=== PATIENT | male | born 1935 | race Caucasian/White ===

== ENCOUNTER 2019-02-06 01:49 | Emergency (ER) | payer MEDICARE ==
[2019-02-06] MEDS ORDERED: Nitroglycerin 50 MG/250 ML BOT 250 ML ONE (02:01)
[2019-02-06 02:12] LABS: ALT (SGPT) 21 U/L (8-55); AST (SGOT) 23 U/L (5-34); Albumin 4.2 g/dL (3.4-4.8); Alkaline Phosphatase 133 U/L (40-110); Anion Gap 16 mmol/L (10-20); BUN (Urea Nitrogen) 15 mg/dL (8.4-25.7); Calc. Creatinine Clearance 0 mL/min (70-130); Calcium 9.3 mg/dL (7.8-10.44); Carbon Dioxide 19 mmol/L (23-31); Chloride 108 mmol/L (98-107); Estimated GFR-MDRD 60; Globulin 3.3 g/dL (2.4-3.5); Glucose 138 mg/dL (83-110); INR-International Normal Ratio 1.1; PTT 35.5 SEC (22.9-36.1); Protein, Total 7.5 g/dL (5.8-8.1); Prothrombin Time 14.5 SEC (12.0-14.7); Sodium 138 mmol/L (136-145)
[2019-02-06] MEDS ORDERED: Magnesium 2 GM/50 ML BAG (IN WATER) ONE (02:16)
[2019-02-06] MEDS ORDERED: methylPREDNISolone Sod Succ/PF 125 MG/2 ML VIAL ONE (02:16)
[2019-02-06] MEDS ORDERED: Furosemide 40 MG/4 ML VIAL ONE (02:17)
[2019-02-06 02:18] LABS: #Basophils 0.1 thou/uL (0.0-0.2); #Eosinphils 0.3 thou/uL (0.0-0.7); #Lymphocytes 2.5 thou/uL (1.20-3.40); #Monocytes 1.1 thou/uL (0.11-0.59); #Neutrophils 8.7 thou/uL (1.40-6.50); %Basophils 0.8 % (0.0-1.0); %Eosinophils 2.5 % (0.0-10.0); %Lymphocytes 19.9 % (21.0-51.0); %Monocytes 8.3 % (0.0-10.0); %Neutrophils 68.4 % (42.0-75.0); Hemoglobin 12.6 g/dL (14.0-18.0); Mean Corpuscular HGB CONC 32.3 g/dL (32.0-36.0); Mean Corpuscular Hemoglobin 32.5 pg (27.0-31.0); Platelet Count 176 thou/uL (130-400); RBC Distribution Width 11.6 % (11.5-14.5); Red Blood Cell (RBC) Count 3.89 mill/uL (4.70-6.10); White Blood Cell (WBC) Count 12.8 thou/uL (4.8-10.8)
[2019-02-06 02:42] LABS: Base Excess-Venous -5.8 mmol/L (-2.0 to 3.0); Bicarbonate (HCO3v) 17.3 mmol/L (22.0-28.0); CO2 Tension (PvCO2) 26.6 mmHg (40.0-50.0); Calcium, Ionized 1.16 mmol/L (See Comments:); Chloride 109 mmol/L (98-107); Hemoglobin - Calc 12.3 g/dL (14.0-18.0); Sodium 136 mmol/L (138-145); T. Carbon Dioxide 18.1 mmol/L (22.0-28.0); vO2 Saturation-calc 99.8 % (60.0-85.0)
--- NOTE | 2019-02-06 07:50 | RAD ---
PORTABLE CHEST: Date: 02/06/19 An AP portable film at 0155 hours is compared with a 09/08/18 study from [facility]. The heart is mildly enlarged. There is some diffuse pulmonary edema present today. Median sternotomy sutures duke prior surgery. There are no large effusions. A rounded object is seen over the left ches t but is presumed to be external to the patient. Calcific changes are present in the aortic arch as u sual. IMPRESSION: Mild cardiomegaly and development of pulmonary edema. CHF is presumed. POS: HOME
== END 2019-02-06 03:05 | disposition short-term general hospital (02) ==
LOC: BURERS 01:49
DX: J96.00 Acute respiratory failure, unspecified whether with hypoxia or hypercapnia (principal); I11.0 Hypertensive heart disease with heart failure; I50.1 Left ventricular failure, unspecified; F17.210 Nicotine dependence, cigarettes, uncomplicated; I25.10 Atherosclerotic heart disease of native coronary artery without angina pectoris; J43.9 Emphysema, unspecified; Z79.82 Long term (current) use of aspirin; Z79.899 Other long term (current) drug therapy; Z79.51 Long term (current) use of inhaled steroids
CPT/HCPCS: 36415; 71045; 80053; 82330; 82435; 82803; 83880; 84132; 84295; 84484; 85025; 85610; 85730; 87804; 93005; J1940; J2930; J3475; J7620

== ENCOUNTER 2019-05-31 23:03 | Emergency (ER) | payer MEDICARE ==
[2019-05-31 23:41] LABS: #Basophils 0.1 thou/uL (0.0-0.2); #Eosinphils 0.4 thou/uL (0.0-0.7); #Monocytes 0.9 thou/uL (0.11-0.59); #Neutrophils 5.3 thou/uL (1.40-6.50); %Basophils 1.2 % (0.0-1.0); %Eosinophils 4.1 % (0.0-10.0); %Lymphocytes 23.2 % (21.0-51.0); %Monocytes 10.6 % (0.0-10.0); %Neutrophils 60.9 % (42.0-75.0); Hemoglobin 13.4 g/dL (14.0-18.0); Mean Corpuscular HGB CONC 35.2 g/dL (32.0-36.0); Mean Corpuscular Hemoglobin 32.7 pg (27.0-31.0); Mean Corpuscular Volume 92.9 fL (78.0-98.0); Mean Platelet Volume 7.2 fL (7.4-10.4); Platelet Count 202 thou/uL (130-400); RBC Distribution Width 11.3 % (11.5-14.5); Red Blood Cell (RBC) Count 4.09 mill/uL (4.70-6.10); White Blood Cell (WBC) Count 8.7 thou/uL (4.8-10.8)
--- NOTE | 2019-05-31 23:59 | RAD ---
XR Chest 1 View Portable HISTORY: Cough. COMPARISON: 02/06/2019 study FINDINGS: Heart size appears slightly enlarged with postop sternotomy change. The lungs are clear of infiltrates. No signs of failure. IMPRESSION: Mild cardiomegaly.
[2019-06-01 00:04] LABS: ALT (SGPT) 18 U/L (8-55); AST (SGOT) 19 U/L (5-34); Albumin 4.3 g/dL (3.4-4.8); Alkaline Phosphatase 114 U/L (40-110); Anion Gap 14 mmol/L (10-20); BUN (Urea Nitrogen) 21 mg/dL (8.4-25.7); Bilirubin, Total 0.4 mg/dL (0.2-1.2); Calc. Creatinine Clearance 0 mL/min (70-130); Calcium 9.4 mg/dL (7.8-10.44); Carbon Dioxide 22 mmol/L (23-31); Chloride 100 mmol/L (98-107); Estimated GFR-MDRD 55; Glucose 111 mg/dL (83-110); Potassium 3.8 mmol/L (3.5-5.1); Protein, Total 7.3 g/dL (5.8-8.1); Sodium 132 mmol/L (136-145)
== END 2019-06-01 00:17 | disposition home or self-care (01) ==
LOC: BURERS 23:03
DX: I10 Essential (primary) hypertension (principal); I25.10 Atherosclerotic heart disease of native coronary artery without angina pectoris; J43.9 Emphysema, unspecified; F17.210 Nicotine dependence, cigarettes, uncomplicated; Z79.82 Long term (current) use of aspirin; Z79.51 Long term (current) use of inhaled steroids; Z79.01 Long term (current) use of anticoagulants; Z79.899 Other long term (current) drug therapy
CPT/HCPCS: 71045; 80053; 83880; 84484; 85025; 93005

== ENCOUNTER 2019-07-07 13:08 | Emergency (ER) | payer MEDICARE ==
[2019-07-07] MEDS ORDERED: Metoprolol Tartrate 5 MG/5 ML VIAL ONE ×3 (13:32→13:40)
[2019-07-07 13:36] LABS: #Basophils 0.1 thou/uL (0.0-0.2); #Eosinphils 0.5 thou/uL (0.0-0.7); #Lymphocytes 2.6 thou/uL (1.20-3.40); #Monocytes 0.4 thou/uL (0.11-0.59); #Neutrophils 4.6 thou/uL (1.40-6.50); %Basophils 1.1 % (0.0-1.0); %Eosinophils 6.2 % (0.0-10.0); %Lymphocytes 31.8 % (21.0-51.0); %Monocytes 4.4 % (0.0-10.0); %Neutrophils 56.7 % (42.0-75.0); Hemoglobin 15.5 g/dL (14.0-18.0); Mean Corpuscular HGB CONC 34.7 g/dL (32.0-36.0); Mean Corpuscular Hemoglobin 32.1 pg (27.0-31.0); Mean Corpuscular Volume 92.4 fL (78.0-98.0); Mean Platelet Volume 6.8 fL (7.4-10.4); Platelet Count 265 thou/uL (130-400); RBC Distribution Width 11.1 % (11.5-14.5); Red Blood Cell (RBC) Count 4.84 mill/uL (4.70-6.10); White Blood Cell (WBC) Count 8.2 thou/uL (4.8-10.8)
[2019-07-07 13:41] LABS: PTT 31.1 SEC (22.9-36.1)
[2019-07-07 13:48] LABS: ALT (SGPT) 24 U/L (8-55); AST (SGOT) 23 U/L (5-34); Albumin 4.7 g/dL (3.4-4.8); Alkaline Phosphatase 107 U/L (40-110); Anion Gap 16 mmol/L (10-20); BUN (Urea Nitrogen) 17 mg/dL (8.4-25.7); Bilirubin, Total 0.8 mg/dL (0.2-1.2); Calc. Creatinine Clearance 0 mL/min (70-130); Calcium 10.1 mg/dL (7.8-10.44); Carbon Dioxide 24 mmol/L (23-31); Chloride 97 mmol/L (98-107); Estimated GFR-MDRD 56; Globulin 3.6 g/dL (2.4-3.5); Glucose 158 mg/dL (83-110); Potassium 3.8 mmol/L (3.5-5.1); Protein, Total 8.3 g/dL (5.8-8.1); Sodium 133 mmol/L (136-145)
[2019-07-07] MEDS ORDERED: Carvedilol 12.5 MG TAB ONE (13:57)
[2019-07-07 14:00] LABS: D-Dimer Test 0.53 *mcg/mL (0.27-0.43)
[2019-07-07 15:09] LABS: Bilirubin Negative (Negative); Blood, Urine Trace (Negative); Clarity Clear (Clear); Glucose, Urine (Dipstick) Negative (Negative); Leukocyte Negative (Negative); Nitrite Negative (Negative); Protein, Urine (Dipstick) Negative (Neg-Trace); Urobilinogen 0.2 mg/dL (Less than 2)
[2019-07-07 15:12] LABS: Bacteria/HPF None Seen HPF (None Seen); Broad Cast None Seen LPF (None Seen); Calcium Oxalate Crystals None Seen HPF (None Seen); Cellular Cast None Seen LPF (None Seen); Epithelial Cast None Seen LPF (None Seen); Fatty Cast None Seen LPF (None Seen); Mucous/LPF None Seen LPF (<2+); Other Casts None Seen LPF (None Seen); Oval Fat Bodies/HPF None Seen HPF (None Seen); RBC/HPF 0-3 HPF (0-3); Red Blood Cell Cast None Seen LPF (None Seen); Renal Epithelial None Seen HPF (None Seen); Sperm/HPF None Seen HPF (None Seen); Squamous Epithelial None Seen HPF (0-3); Transitional Epithelial None Seen HPF (None Seen); Trichomonas/HPF None Seen HPF (None Seen); Triple Phosphate Crystal None Seen HPF (None Seen); Unclassified Crystals None Seen HPF (None Seen); WBC/HPF None Seen HPF (0-3); Waxy Cast None Seen LPF (None Seen); White Blood Cell Cast None Seen LPF (None Seen); Yeast-Budding None Seen HPF (None Seen); Yeast-Hyphae None Seen HPF (None Seen)
[2019-07-07 15:21] LABS: Troponin I Less than 0.010 ng/mL (< 0.028)
[2019-07-07] MEDS ORDERED: Carvedilol 12.5 MG TAB PO SCH (15:45)
--- NOTE | 2019-07-07 17:00 | RAD ---
PORTABLE CHEST: 07/07/19 An AP portable film at 1333 is compared with a 07/03/2019 film. Mild cardiomegaly is no different than before. There is no congestive change or pleural effusion. The lungs are clear. The median sternotomy sutures are seen from prior surgery. IMPRESSION: No acute thoracic finding. POS: HOME
== END 2019-07-07 16:10 | disposition home or self-care (01) ==
LOC: BURERS 13:08
DX: I48.91 Unspecified atrial fibrillation (principal); I25.10 Atherosclerotic heart disease of native coronary artery without angina pectoris; I10 Essential (primary) hypertension; J43.9 Emphysema, unspecified; F17.210 Nicotine dependence, cigarettes, uncomplicated; Z79.82 Long term (current) use of aspirin; Z79.01 Long term (current) use of anticoagulants; Z79.51 Long term (current) use of inhaled steroids; Z79.899 Other long term (current) drug therapy
CPT/HCPCS: 71045; 80053; 81003; 81015; 83605; 84443; 84484; 85025; 85379; 85610; 85730; 93005; 94760; 96374

== ENCOUNTER 2019-09-28 07:31 | Emergency (ER) | payer MEDICARE ==
--- NOTE | 2019-09-28 16:44 | RAD ---
PORTABLE CHEST: 09/28/19 An AP portable film at 0816 is compared with a 07/07/19 study. There has been no adverse interval change. The heart is normal in size and the lungs are clear. They are mildly hyperexpanded but no different than before. There are no effusions, congestive changes, or other acute findings of concern. Calcifications over the right lower chest were present previously a nd have not changed. Arteriosclerotic change is seen in the aorta. IMPRESSION: No acute thoracic findings. POS: HOME
== END 2019-09-28 08:30 | disposition home or self-care (01) ==
LOC: BURERS 07:31
DX: Z00.00 Encounter for general adult medical examination without abnormal findings (principal); I25.10 Atherosclerotic heart disease of native coronary artery without angina pectoris; I10 Essential (primary) hypertension; F17.210 Nicotine dependence, cigarettes, uncomplicated; Z79.899 Other long term (current) drug therapy; Z79.82 Long term (current) use of aspirin
CPT/HCPCS: 71045

== ENCOUNTER 2020-05-12 15:32 | Emergency (ER) | payer MEDICARE ==
[2020-05-12 16:20] LABS: #Basophils 0.1 thou/uL (0.0-0.2); #Eosinphils 0.2 thou/uL (0.0-0.7); #Lymphocytes 2.1 thou/uL (1.20-3.40); #Monocytes 0.7 thou/uL (0.11-0.59); %Eosinophils 2.7 % (0.0-10.0); %Lymphocytes 25.6 % (21.0-51.0); %Monocytes 9.1 % (0.0-10.0); %Neutrophils 61.6 % (42.0-75.0); Hemoglobin 14.5 g/dL (14.0-18.0); Mean Corpuscular HGB CONC 33.6 g/dL (32.0-36.0); Mean Corpuscular Volume 95.3 fL (78.0-98.0); Mean Platelet Volume 8.3 fL (7.4-10.4); Platelet Count 195 thou/uL (130-400); RBC Distribution Width 11.6 % (11.5-14.5); Red Blood Cell (RBC) Count 4.52 mill/uL (4.70-6.10); White Blood Cell (WBC) Count 8.2 thou/uL (4.8-10.8)
[2020-05-12 16:26] LABS: ALT (SGPT) 18 U/L (8-55); AST (SGOT) 19 U/L (5-34); Alkaline Phosphatase 95 U/L (40-110); Anion Gap 14 mmol/L (10-20); BUN (Urea Nitrogen) 22 mg/dL (8.4-25.7); Bilirubin, Total 0.4 mg/dL (0.2-1.2); Calc. Creatinine Clearance 0 mL/min (70-130); Calcium 9.4 mg/dL (7.8-10.44); Carbon Dioxide 23 mmol/L (23-31); Chloride 107 mmol/L (98-107); Globulin 3.1 g/dL (2.4-3.5); Glucose 107 mg/dL (83-110); Potassium 4.5 mmol/L (3.5-5.1); Protein, Total 7.1 g/dL (5.8-8.1); Sodium 139 mmol/L (136-145)
[2020-05-12 16:46] LABS: CKMB 1.7 ng/mL (0-6.6)
--- NOTE | 2020-05-12 20:31 | RAD ---
CHEST TWO VIEWS: Date: 05-12-2020 Comparison: 09-28-2019 FINDINGS: The heart remains normal in size. Dense calcification is seen in the aortic arch. A prostatic aortic valve is noted as well as very dense microannular calcification. There is no vascular congestion or e bertram. The lungs are clear. No effusions are present. IMPRESSION: No acute thoracic finding. POS: HOME
== END 2020-05-12 18:55 | disposition short-term general hospital (02) ==
LOC: BURERS 15:32
DX: I21.4 Non-ST elevation (NSTEMI) myocardial infarction (principal); I48.91 Unspecified atrial fibrillation; I10 Essential (primary) hypertension; J43.9 Emphysema, unspecified; F17.210 Nicotine dependence, cigarettes, uncomplicated; Z79.01 Long term (current) use of anticoagulants; Z79.82 Long term (current) use of aspirin; Z79.899 Other long term (current) drug therapy
CPT/HCPCS: 71046; 80053; 82553; 83880; 84484; 85025; 93005

== ENCOUNTER 2020-08-05 08:28 | Emergency (ER) | payer MEDICARE ==
[2020-08-05 10:46] LABS: #Basophils 0.1 thou/uL (0.0-0.2); #Eosinphils 0.2 thou/uL (0.0-0.7); #Lymphocytes 1.4 thou/uL (1.20-3.40); #Monocytes 0.6 thou/uL (0.11-0.59); #Neutrophils 3.3 thou/uL (1.40-6.50); %Basophils 1.6 % (0.0-1.0); %Eosinophils 3.4 % (0.0-10.0); %Lymphocytes 24.9 % (21.0-51.0); %Monocytes 10.9 % (0.0-10.0); %Neutrophils 59.2 % (42.0-75.0); Hemoglobin 14.2 g/dL (14.0-18.0); Mean Corpuscular HGB CONC 33.2 g/dL (32.0-36.0); Mean Corpuscular Volume 96.2 fL (78.0-98.0); Mean Platelet Volume 7.8 fL (7.4-10.4); Platelet Count 170 thou/uL (130-400); RBC Distribution Width 12.2 % (11.5-14.5); Red Blood Cell (RBC) Count 4.44 mill/uL (4.70-6.10); White Blood Cell (WBC) Count 5.6 thou/uL (4.8-10.8)
[2020-08-05 10:58] LABS: Anion Gap 11 mmol/L (10-20); BUN (Urea Nitrogen) 17 mg/dL (8.4-25.7); Calc. Creatinine Clearance 0 mL/min (70-130); Carbon Dioxide 27 mmol/L (23-31); Chloride 106 mmol/L (98-107); Potassium 4.9 mmol/L (3.5-5.1); Sodium 139 mmol/L (136-145)
[2020-08-05 10:59] LABS: Calcium 9.3 mg/dL (7.8-10.44); Glucose 135 mg/dL (83-110)
== END 2020-08-05 11:17 | disposition home or self-care (01) ==
LOC: BURERS 08:28
DX: J18.9 Pneumonia, unspecified organism (principal); I10 Essential (primary) hypertension; I25.10 Atherosclerotic heart disease of native coronary artery without angina pectoris; F17.210 Nicotine dependence, cigarettes, uncomplicated
CPT/HCPCS: 36415; 80048; 85025; 93005

== ENCOUNTER 2020-08-15 13:55 | Emergency (ER) | payer MEDICARE ==
[2020-08-15 14:47] LABS: #Basophils 0.1 thou/uL (0.0-0.2); #Eosinphils 0.3 thou/uL (0.0-0.7); #Lymphocytes 2.2 thou/uL (1.20-3.40); #Monocytes 0.8 thou/uL (0.11-0.59); #Neutrophils 5.5 thou/uL (1.40-6.50); %Lymphocytes 25.2 % (21.0-51.0); %Monocytes 8.9 % (0.0-10.0); %Neutrophils 61.9 % (42.0-75.0); Hemoglobin 13.7 g/dL (14.0-18.0); Mean Corpuscular HGB CONC 35.4 g/dL (32.0-36.0); Mean Corpuscular Hemoglobin 32.7 pg (27.0-31.0); Mean Corpuscular Volume 92.3 fL (78.0-98.0); Mean Platelet Volume 8.4 fL (7.4-10.4); Platelet Count 163 thou/uL (130-400); RBC Distribution Width 11.4 % (11.5-14.5); Red Blood Cell (RBC) Count 4.18 mill/uL (4.70-6.10); White Blood Cell (WBC) Count 8.9 thou/uL (4.8-10.8)
[2020-08-15 15:17] LABS: ALT (SGPT) 13 U/L (8-55); AST (SGOT) 15 U/L (5-34); Albumin 3.9 g/dL (3.4-4.8); Alkaline Phosphatase 88 U/L (40-110); Anion Gap 15 mmol/L (10-20); BUN (Urea Nitrogen) 23 mg/dL (8.4-25.7); Bilirubin, Total 0.6 mg/dL (0.2-1.2); Calc. Creatinine Clearance 0 mL/min (70-130); Calcium 9.2 mg/dL (7.8-10.44); Carbon Dioxide 20 mmol/L (23-31); Chloride 106 mmol/L (98-107); Globulin 3.2 g/dL (2.4-3.5); Glucose 155 mg/dL (83-110); Potassium 4.5 mmol/L (3.5-5.1); Protein, Total 7.1 g/dL (5.8-8.1); Sodium 136 mmol/L (136-145)
[2020-08-15] MEDS ORDERED: Furosemide 100 MG/10 ML VIAL ONE (15:42)
[2020-08-15 16:56] LABS: Bilirubin Negative (Negative); Blood, Urine Negative (Negative); Clarity Clear (Clear); Glucose, Urine (Dipstick) Negative (Negative); Ketone, Urine Negative (Negative); Leukocyte Negative (Negative); Nitrite Negative (Negative); Protein, Urine (Dipstick) Negative (Neg-Trace); Specific Gravity, Urine 1.025 (1.005-1.030); Urobilinogen 0.2 mg/dL (Less than 2); pH, Urine 5.5 (5.0-9.0)
== END 2020-08-15 17:23 | disposition home or self-care (01) ==
LOC: BURERS 13:55
DX: I11.0 Hypertensive heart disease with heart failure (principal); I50.9 Heart failure, unspecified; I25.10 Atherosclerotic heart disease of native coronary artery without angina pectoris; F17.210 Nicotine dependence, cigarettes, uncomplicated; D64.9 Anemia, unspecified; Z91.14 Patient's other noncompliance with medication regimen
CPT/HCPCS: 36415; 71045; 80053; 81003; 83605; 83880; 84484; 85025; 87040; 87086; 93005; 94640; 94760; 96374; J1940; J7620

== ENCOUNTER 2020-10-17 17:33 | Emergency (ER) | payer MEDICARE ==
[2020-10-17 18:06] LABS: #Eosinphils 0.1 thou/uL (0.0-0.7); #Lymphocytes 1.6 thou/uL (1.20-3.40); #Monocytes 0.7 thou/uL (0.11-0.59); #Neutrophils 11.3 thou/uL (1.40-6.50); %Basophils 0.3 % (0.0-1.0); %Eosinophils 0.4 % (0.0-10.0); %Lymphocytes 11.5 % (21.0-51.0); %Monocytes 5.2 % (0.0-10.0); %Neutrophils 82.7 % (42.0-75.0); Hemoglobin 12.5 g/dL (14.0-18.0); Mean Corpuscular HGB CONC 34.1 g/dL (32.0-36.0); Mean Corpuscular Hemoglobin 32.4 pg (27.0-31.0); Mean Corpuscular Volume 95.2 fL (78.0-98.0); Mean Platelet Volume 7.5 fL (7.4-10.4); Platelet Count 162 thou/uL (130-400); RBC Distribution Width 12.3 % (11.5-14.5); Red Blood Cell (RBC) Count 3.84 mill/uL (4.70-6.10); White Blood Cell (WBC) Count 13.7 thou/uL (4.8-10.8)
[2020-10-17 18:28] LABS: ALT (SGPT) 38 U/L (8-55); AST (SGOT) 35 U/L (5-34); Alkaline Phosphatase 100 U/L (40-110); Anion Gap 16 mmol/L (10-20); BUN (Urea Nitrogen) 25 mg/dL (8.4-25.7); Bilirubin, Total 1.2 mg/dL (0.2-1.2); Calc. Creatinine Clearance 0 mL/min (70-130); Calcium 9.2 mg/dL (7.8-10.44); Carbon Dioxide 23 mmol/L (23-31); Chloride 102 mmol/L (98-107); Globulin 3.1 g/dL (2.4-3.5); Glucose 158 mg/dL (83-110); Potassium 3.6 mmol/L (3.5-5.1); Protein, Total 7.1 g/dL (5.8-8.1); Sodium 137 mmol/L (136-145)
[2020-10-17 18:54] LABS: CKMB 1.5 ng/mL (0-6.6)
[2020-10-17] MEDS ORDERED: Aspirin Chewable 81 MG TAB ONE (19:00)
[2020-10-17] MEDS ORDERED: Azithromycin 500 MG VIAL ONE (20:38)
[2020-10-17] MEDS ORDERED: Nitroglycerin 0.4 MG TAB 1 EACH ONE ×2 (20:38→20:45)
[2020-10-17] MEDS ORDERED: cefTRIAXone\\ROCEPHIN 1 GM VIAL ONE (20:38)
[2020-10-17] MEDS ORDERED: Sodium Chloride 0.9% 100 ML ONE (20:38)
[2020-10-17] MEDS ORDERED: Furosemide 40 MG/4 ML VIAL ONE (20:40)
== END 2020-10-17 21:20 | disposition short-term general hospital (02) ==
LOC: BURERS 17:33
DX: J18.9 Pneumonia, unspecified organism (principal); I11.0 Hypertensive heart disease with heart failure; I50.9 Heart failure, unspecified; I25.10 Atherosclerotic heart disease of native coronary artery without angina pectoris; F17.210 Nicotine dependence, cigarettes, uncomplicated; Z79.01 Long term (current) use of anticoagulants; Z79.899 Other long term (current) drug therapy
CPT/HCPCS: 36415; 71045; 80053; 82553; 83605; 83880; 84484; 85025; 87040; 93005; 96365; 96375; J0456; J0696; J1940; J3490

== ENCOUNTER 2020-12-15 14:23 | Emergency (ER) | payer MEDICARE | END 2020-12-15 14:49 | disposition home or self-care (01) | LOC: BURERS 14:23 | DX: M79.81 Nontraumatic hematoma of soft tissue (principal); I11.0 Hypertensive heart disease with heart failure; I50.9 Heart failure, unspecified; I25.10 Atherosclerotic heart disease of native coronary artery without angina pectoris; F17.210 Nicotine dependence, cigarettes, uncomplicated; Z79.01 Long term (current) use of anticoagulants; Z79.899 Other long term (current) drug therapy | CPT/HCPCS: 99282 ==

== ENCOUNTER 2021-04-14 11:20 | Emergency (ER) | payer MEDICARE | END 2021-04-14 12:31 | disposition home or self-care (01) | LOC: BURERS 11:20 | DX: J18.9 Pneumonia, unspecified organism (principal); I11.0 Hypertensive heart disease with heart failure; I50.9 Heart failure, unspecified; I25.10 Atherosclerotic heart disease of native coronary artery without angina pectoris; F17.210 Nicotine dependence, cigarettes, uncomplicated; J44.9 Chronic obstructive pulmonary disease, unspecified | CPT/HCPCS: 71046 ==

== ENCOUNTER 2021-06-21 09:11 | Emergency (ER) | payer MEDICARE ==
[2021-06-21] MEDS ORDERED: Dexamethasone 4 MG TAB ONE ×2 (10:00→10:02)
== END 2021-06-21 10:08 | disposition home or self-care (01) ==
LOC: BURERS 09:11
DX: J44.9 Chronic obstructive pulmonary disease, unspecified (principal); J06.9 Acute upper respiratory infection, unspecified; I11.0 Hypertensive heart disease with heart failure; I50.9 Heart failure, unspecified; I25.10 Atherosclerotic heart disease of native coronary artery without angina pectoris; F17.210 Nicotine dependence, cigarettes, uncomplicated
CPT/HCPCS: 99283; J8540

== ENCOUNTER 2021-12-01 09:19 | Emergency (ER) | payer MEDICARE, OTHER | END 2021-12-01 10:00 | disposition home or self-care (01) | LOC: BURERS 09:19 | DX: J42 Unspecified chronic bronchitis (principal); I11.0 Hypertensive heart disease with heart failure; I50.9 Heart failure, unspecified; I25.10 Atherosclerotic heart disease of native coronary artery without angina pectoris; F17.210 Nicotine dependence, cigarettes, uncomplicated | CPT/HCPCS: 99283 ==

== ENCOUNTER 2022-05-17 12:52 | Emergency (ER) | payer MEDICARE, OTHER ==
[2022-05-17 13:44] LABS: #Basophils 0.1 thou/uL (0.0-0.2); #Eosinphils 0.4 thou/uL (0.0-0.7); #Lymphocytes 2.4 thou/uL (1.20-3.40); #Monocytes 1.1 thou/uL (0.11-0.59); #Neutrophils 8.1 thou/uL (1.40-6.50); %Basophils 0.8 % (0.0-1.0); %Lymphocytes 19.6 % (21.0-51.0); %Monocytes 9.2 % (0.0-10.0); %Neutrophils 67.5 % (42.0-75.0); Hemoglobin 12.5 g/dL (14.0-18.0); Mean Corpuscular HGB CONC 34.6 g/dL (32.0-36.0); Mean Corpuscular Hemoglobin 32.9 pg (27.0-31.0); Mean Corpuscular Volume 94.8 fl (78.0-98.0); Mean Platelet Volume 7.7 fL (7.4-10.4); Platelet Count 203 10x3/uL (130-400); RBC Distribution Width 11.5 % (11.5-14.5); Red Blood Cell (RBC) Count 3.81 mill/uL (4.70-6.10); White Blood Cell (WBC) Count 12.1 10x3/uL (4.8-10.8)
[2022-05-17 14:01] LABS: ALT (SGPT) 17 U/L (8-55); AST (SGOT) 18 U/L (5-34); Alkaline Phosphatase 85 U/L (40-110); Anion Gap 13 mmol/L (10-20); BUN (Urea Nitrogen) 26 mg/dL (8.4-25.7); Bilirubin, Total 0.4 mg/dL (0.2-1.2); Calc. Creatinine Clearance 0 mL/min (70-130); Carbon Dioxide 21 mmol/L (23-31); Chloride 109 mmol/L (98-107); Estimated GFR 42; Globulin 3.1 g/dL (2.4-3.5); Glucose 143 mg/dL (83-110); Potassium 4.4 mmol/L (3.5-5.1); Protein, Total 7.1 g/dL (5.8-8.1); Sodium 139 mmol/L (136-145)
== END 2022-05-17 15:11 | disposition home or self-care (01) ==
LOC: BURERS 12:52
DX: J22 Unspecified acute lower respiratory infection (principal); R09.1 Pleurisy; F17.210 Nicotine dependence, cigarettes, uncomplicated; I11.0 Hypertensive heart disease with heart failure; I50.9 Heart failure, unspecified; I25.10 Atherosclerotic heart disease of native coronary artery without angina pectoris; Z79.82 Long term (current) use of aspirin; Z79.899 Other long term (current) drug therapy
CPT/HCPCS: 71045; 80053; 83880; 84484; 85025; 93005

== ENCOUNTER 2023-08-04 10:44 | Emergency (ER) | payer MEDICARE, OTHER ==
[2023-08-04] MEDS ORDERED: Ibuprofen 200 MG TAB ONE (13:12)
[2023-08-04] MEDS ORDERED: predniSONE 20 MG TAB ONE (13:12)
== END 2023-08-04 13:12 | disposition home or self-care (01) ==
LOC: BURERS 10:44
DX: M94.0 Chondrocostal junction syndrome [Tietze] (principal); I25.10 Atherosclerotic heart disease of native coronary artery without angina pectoris; I11.0 Hypertensive heart disease with heart failure; I50.9 Heart failure, unspecified; F17.210 Nicotine dependence, cigarettes, uncomplicated
CPT/HCPCS: 71045; 93005; J7512

== ENCOUNTER 2024-03-26 15:50 | Emergency (ER) | payer MEDICARE | END 2024-03-26 17:21 | disposition home or self-care (01) | LOC: BURERS 15:50 | DX: J06.9 Acute upper respiratory infection, unspecified (principal); I11.0 Hypertensive heart disease with heart failure; I50.9 Heart failure, unspecified; I25.10 Atherosclerotic heart disease of native coronary artery without angina pectoris; F17.210 Nicotine dependence, cigarettes, uncomplicated; Z95.1 Presence of aortocoronary bypass graft | CPT/HCPCS: 71045 ==

== ENCOUNTER 2024-11-20 08:05 | Emergency (ER) | payer MEDICARE | END 2024-11-20 08:38 | disposition home or self-care (01) | LOC: BURERS 08:05 | DX: J06.9 Acute upper respiratory infection, unspecified (principal); B97.89 Other viral agents as the cause of diseases classified elsewhere; I25.10 Atherosclerotic heart disease of native coronary artery without angina pectoris; I11.0 Hypertensive heart disease with heart failure; I50.9 Heart failure, unspecified; E78.00 Pure hypercholesterolemia, unspecified; F17.210 Nicotine dependence, cigarettes, uncomplicated; Z79.82 Long term (current) use of aspirin; Z79.899 Other long term (current) drug therapy ==

== ENCOUNTER 2025-02-24 08:31 | Emergency (ER) | payer MEDICARE ==
[2025-02-24 09:35] LABS: #Basophils 0.1 thou/uL (0.0-0.2); #Eosinophils 0.1 thou/uL (0.0-0.7); #Lymphocytes 1.1 thou/uL (1.20-3.40); #Monocytes 0.8 thou/uL (0.11-0.59); #Neutrophils 7.7 thou/uL (1.40-6.50); %Basophils 0.7 % (0.0-1.0); %Eosinophils 1.4 % (0.0-10.0); %Lymphocytes 11.4 % (21.0-51.0); %Monocytes 8.4 % (0.0-10.0); %Neutrophils 78.1 % (42.0-75.0); Hematocrit 36.7 % (42.0-52.0); Hemoglobin 12.2 g/dL (14.0-18.0); Mean Corpuscular Hemoglobin 32.1 pg (27.0-31.0); Mean Corpuscular Volume 96.9 fl (78.0-98.0); Platelet Count 182 10x3/uL (130-400); Red Blood Cell (RBC) Count 3.78 mill/uL (4.70-6.10); White Blood Cell (WBC) Count 9.8 10x3/uL (4.8-10.8)
[2025-02-24 09:54] LABS: ALT (SGPT) 7 U/L (Less than 45); AST (SGOT) 13 U/L (11-34); Albumin 3.5 g/dL (3.1-4.5); Alkaline Phosphatase 90 U/L (40-110); Anion Gap 15 mmol/L (10-20); BUN (Urea Nitrogen) 18 mg/dL (8.4-25.7); Bilirubin, Total 1.6 mg/dL (0.3-1.2); Calc. Creatinine Clearance 0 mL/min (70-130); Calcium 9.0 mg/dL (7.8-10.44); Carbon Dioxide 22 mmol/L (23-31); Chloride 106 mmol/L (98-107); Globulin 3.3 g/dL (2.4-3.5); Glucose 107 mg/dL (83-110); Potassium 4.6 mmol/L (3.5-5.1); Sodium 138 mmol/L (136-145)
[2025-02-24 09:56] LABS: Troponin I 0.019 ng/mL (< 0.028)
[2025-02-24] MEDS ORDERED: Furosemide 40 MG (4 mL) VIAL ONE (11:37)
[2025-02-24 11:58] LABS: Troponin I 0.021 ng/mL (< 0.028)
== END 2025-02-24 12:15 | disposition home or self-care (01) ==
LOC: BURERS 08:31
DX: R06.02 Shortness of breath (principal); I25.10 Atherosclerotic heart disease of native coronary artery without angina pectoris; I11.0 Hypertensive heart disease with heart failure; I50.9 Heart failure, unspecified; F17.210 Nicotine dependence, cigarettes, uncomplicated
CPT/HCPCS: 71046; 71275; 80053; 83880; 84484 ×2; 85025; 85379; 93005; J1940; 36415; 96374